=== PATIENT | male | born 1965 | race Two or more races ===

== ENCOUNTER 2018-02-08 17:04 | Emergency (ER) | payer OTHER ==
[~2018-02-08] VITALS: Ht 167.6 cm; Wt 72.1 kg
--- NOTE | 2018-02-08 17:20 | NUR ---
bedside for eval.
--- NOTE | 2018-02-08 17:20 | NUR ---
[id number] C/O SUZY BP, GENERALIZED WEAKNESS. PER EMS BS IN FIELD 96. PT IS AAOX4. PT -N/V. PT STATES +DIZZINESS. RESP EVEN AND UNLABORED. NO S/S OF ACUTE DISTRESS NOTED. VSS. SKIN WNL. PT ABLE TO PERFORM NEURO TASKS AND NEURO WNL. PT GOWNED AND PLACED ON MONITOR AND POX. PT SAFETY AND COMFORT MEASURES IN PLACE. AWAITING MD FOR EVAL.
[2018-02-08] MEDS ORDERED: ONDANSETRON HCL/PF 4 MG/2 ML VIAL IVP ONE (17:30)
[2018-02-08] MEDS ORDERED: IV NS 0.9% 1,000 ML BAG IV ONE (17:30)
[2018-02-08] MEDS ORDERED: MECLIZINE HCL 25 MG TABLET PO ONE (17:30)
[2018-02-08] MEDS ORDERED: ONDANSETRON HCL/PF 4 MG/2 ML VIAL ONE (17:33)
[2018-02-08] MEDS ORDERED: MECLIZINE HCL 25 MG TABLET ONE (17:34)
[2018-02-08 17:43] LABS: CALCIUM, SERUM 9.7 mg/dL (8.5-10.1); CARBON DIOXIDE 23 mmol/L (21-32); CHLORIDE 102 mmol/L (98-107); CREATININE 1.6 mg/dL (0.6-1.3); GLUCOSE 84 mg/dL (74-106); POTASSIUM 3.4 mmol/L (3.5-5.1); SODIUM SERUM 137 mmol/L (136-145); UREA NITROGEN, BLOOD 19 mg/dL (7-18)
[2018-02-08 17:48] LABS: BASOPHILS # (AUTO) 0.1 /CMM (0.0-0.2); BASOPHILS % (AUTO) 1.5 % (0.0-2.0); EOSINOPHILS % (AUTO) 2.1 % (0.0-6.0); HEMATOCRIT 45 % (39-51); HEMOGLOBIN 15.3 g/dL (13.5-17.5); LYMPHOCYTES # (AUTO) 2.2 /CMM (0.8-4.8); LYMPHOCYTES % (AUTO) 31.3 % (20.0-44.0); MEAN CORPUSCULAR HGB CONC 34 g/dl (31.0-36.0); MEAN CORPUSCULAR VOLUME 95 fL (80-96); MONOCYTES # (AUTO) 0.8 /CMM (0.1-1.30); MONOCYTES % (AUTO) 11.5 % (2.0-12.0); NEUTROPHILS # (AUTO) 3.9 /CMM (1.8-8.9); NEUTROPHILS % (AUTO) 53.6 % (43.0-81.0); PLATELET COUNT (AUTO) 198 /CMM (150-450); RDW COEFFICIENT OF VARIATION 12.7 (11.5-15.0); WHITE BLOOD COUNT (AUTO) 7.1 K/uL (4.3-11.0)
[2018-02-08 17:53] LABS: TROPONIN I < 0.017 ng/mL (0.00-0.056)
--- NOTE | 2018-02-08 18:21 | NUR ---
CALLED DIETARY FOR FOOD TRAY
--- NOTE | 2018-02-08 18:30 | NUR ---
Patient discharged to home in stable condition. Written and verbal after care instructions along with RX given. Patient verbalizes understanding of instruction.IV removed. Catheter intact and site benign. Pressure and 4x4 applied to site. No bleeding noted. VSS upon discharge. Pt ambulated with steady gait out of ER
[2018-02-08 18:31] VITALS: BP 153/98
== END 2018-02-08 18:43 | disposition home or self-care (01) ==
LOC: ER 17:09
DX: H81.10 Benign paroxysmal vertigo, unspecified ear (principal); R53.1 Weakness; I10 Essential (primary) hypertension; E11.9 Type 2 diabetes mellitus without complications; Z60.2 Problems related to living alone
CPT/HCPCS: 36415; 71045-TC; 80048-TC; 84484-TC; 85025-TC; 85730-TC; A4606; J2405; J7030; J8597; Z7610

== ENCOUNTER 2021-08-19 18:33 | Emergency (ER) | payer OTHER ==
[~2021-08-19] VITALS: Ht 177.8 cm; Wt 76.2 kg
--- NOTE | 2021-08-19 19:10 | NUR ---
patient admitted self, ambulated into ER stated having LLQ pain, hurts to move walk and talk he stated, current smoker, smokes 6-7 per day, had colon cancer years ago he stated, awaiting MD orders and will carry out.
[2021-08-19] MEDS ORDERED: PERM60CR6 TP (19:19)
--- NOTE | 2021-08-19 19:26 | NUR ---
Patient discharged to home in stable condition. Written and verbal after care instructions given. Patient verbalizes understanding of instruction.
[2021-08-19 19:43] VITALS: BP 166/97
== END 2021-08-19 19:27 | disposition home or self-care (01) ==
LOC: ER 18:37
DX: K40.90 Unilateral inguinal hernia, without obstruction or gangrene, not specified as recurrent (principal); B86 Scabies; I10 Essential (primary) hypertension; E11.9 Type 2 diabetes mellitus without complications; Z60.2 Problems related to living alone

== ENCOUNTER 2021-08-30 06:13 | Emergency (ER) | payer OTHER ==
[~2021-08-30] VITALS: Ht 177.8 cm; Wt 76.2 kg
[~2021-08-30 06:13] MED LIST: PERM60CR6 TP
[2021-08-30] MEDS ORDERED: PERM60CR4 TP (06:56)
[2021-08-30 07:00] VITALS: BP 165/100
--- NOTE | 2021-08-30 07:00 | NUR ---
Patient discharged to home in stable condition. Written and verbal after care instructions given. Patient verbalizes understanding of instruction.
== END 2021-08-30 07:22 | disposition home or self-care (01) ==
LOC: ER 06:33
DX: K40.90 Unilateral inguinal hernia, without obstruction or gangrene, not specified as recurrent (principal); I10 Essential (primary) hypertension; E11.9 Type 2 diabetes mellitus without complications; Z60.2 Problems related to living alone; Z79.899 Other long term (current) drug therapy